=== PATIENT | female | born 1955 | race Caucasian/White ===

== ENCOUNTER → 2017-06-27 | Outpatient (CLI) | payer MEDICARE, OTHER ==
[~2017-06-27] MED LIST: DULO60CA44 PO; GABA-531 PO; LEVO500 PO; LEVO75 PO; QUET300T18 PO; ROPI1TAB38 PO
[2017-06-27 15:46] LABS: HEMOGLOBIN A1C 8.5 % (4.5-6.2)
[2017-06-27 15:54] LABS: CHOL/HDL RATIO 3.7 (3.9-5.7)
== END | disposition home or self-care (01) ==
LOC: LABMN 12:00
PROVIDERS: ATTEND Psychiatry & Neurology Psychiatry
DX: F25.9 Schizoaffective disorder, unspecified (principal)
CPT/HCPCS: 82947; 83036

== ENCOUNTER 2020-05-20 17:33 | Emergency (ER) | payer MEDICARE, OTHER ==
[~2020-05-20] VITALS: Ht 160 cm; Wt 81.8 kg
[~2020-05-20 17:33] MED LIST changes: +DULO-8 PO; -DULO60CA44 PO; +LEVO-72 PO; -LEVO500 PO
[2020-05-20 18:02] VITALS: BP 135/80
[2020-05-20] MEDS ORDERED: QUEtiapine FUMARATE 100 MG TABLET PO ONE (20:30)
== END 2020-05-20 20:36 | disposition home or self-care (01) ==
LOC: EMS 17:33
DX: F32.9 Major depressive disorder, single episode, unspecified (principal); E78.00 Pure hypercholesterolemia, unspecified; F20.9 Schizophrenia, unspecified

== ENCOUNTER 2020-06-16 13:37 | Emergency (ER) | payer MEDICARE, OTHER ==
[~2020-06-16] VITALS: Ht 160 cm; Wt 86.4 kg
[2020-06-16] MEDS ORDERED: SIMV-43 PO (14:10)
[2020-06-16] MEDS ORDERED: FURO40TA5 PO (14:10)
[2020-06-16] MEDS ORDERED: METF-960 PO (14:10)
[2020-06-16] MEDS ORDERED: OLAN5TAB27 PO (14:10)
[2020-06-16] MEDS ORDERED: QUET200T PO (14:10)
[2020-06-16] MEDS ORDERED: CHOL100018 PO (14:10)
[2020-06-16] MEDS ORDERED: BACL10TA PO (14:10)
[2020-06-16] MEDS ORDERED: GABA-1181 PO (14:10)
[2020-06-16] MEDS ORDERED: TRAZ-252 PO (14:10)
[2020-06-16] MEDS ORDERED: OMEP20CA13 PO (14:10)
[2020-06-16] MEDS ORDERED: DOCU-350 PO (14:10)
[2020-06-16] MEDS ORDERED: LORazepam 1 MG TABLET PO ONE (14:15)
[2020-06-16] MEDS ORDERED: HALOPERIDOL 5 MG TABLET PO ONE (14:15)
[2020-06-16 15:40] VITALS: BP 142/70
== END 2020-06-16 17:03 | disposition home or self-care (01) ==
LOC: EMS 13:37
DX: F20.9 Schizophrenia, unspecified (principal); Z90.710 Acquired absence of both cervix and uterus; F32.9 Major depressive disorder, single episode, unspecified; E78.00 Pure hypercholesterolemia, unspecified; Z79.899 Other long term (current) drug therapy
CPT/HCPCS: 99284; Z7502; Z7610